=== PATIENT | female | born 1995 | race Caucasian/White ===

== ENCOUNTER 2017-03-22 09:55 | Emergency (ER) ==
[2017-03-22 10:01] VITALS: BP 149/88; TEMP 97.5; BMI 18.2
[2017-03-22] MEDS ORDERED: TORADOL IM STA (10:16)
[2017-03-22 10:33] LABS: BILIRUBIN,URINE Negative (NEGATIVE); KETONES,URINE Negative (NEGATIVE); LEUKOCYTE ESTERASE ,URINE Negative (NEGATIVE); NITRITE,URINE Negative (NEGATIVE); PH,URINE 8.5 (5-9); PROTEIN,URINE Negative (NEGATIVE); URINE, BLOOD Negative (NEGATIVE)
[2017-03-22 10:34] LABS: BASOPHILS % (AUTO) 0.3 % (0.0-3.0); EOSINOPHILS # (AUTO) 0.1 K/ul (0.0-0.7); EOSINOPHILS % (AUTO) 1.5 % (0.0-7.0); HEMATOCRIT 41.9 % (37.0-47.0); HEMOGLOBIN 14.7 g/dl (12.0-16.0); IMMATURE GRANULOCYTE % (AUTO) 0.4 % (0.0-5.0); LYMPHOCYTES # (AUTO) 1.9 K/uL (0.60-3.4); LYMPHOCYTES % (AUTO) 28.3 (10.0-50.0); MEAN CORPUSCULAR HEMOGLOBIN 30.4 pg (27.0-31.0); MEAN CORPUSCULAR HGB CONC 35.1 (31.8-35.4); MEAN CORPUSCULAR VOLUME 86.7 fl (81.0-99.0); MONOCYTES # (AUTO) 0.5 K/uL (0.4-2.0); MONOCYTES % (AUTO) 7.5 (0-10); NEUTROPHILS # (AUTO) 4.2 K/ul (2.0-6.9); PLATELET COUNT 221 10^3/uL (140-440); RED BLOOD COUNT 4.83 10^6/ul (4.20-5.40); WHITE BLOOD COUNT 6.76 K/ul (4.6-10.2)
[2017-03-22 10:35] LABS: ADD URINE MICROSCOPIC NO
[2017-03-22] MEDS ORDERED: STADOL IM STA (10:36)
[2017-03-22] MEDS ORDERED: ZOFRAN 4 MG/2 ML IM STA (10:37)
[2017-03-22 10:49] LABS: SERUM PREGNANCY INTERNAL QC INTERNAL QC VALID
[2017-03-22 10:51] LABS: ALBUMIN 4.4 g/dL (3.4-5.0); ALBUMIN/GLOBULIN RATIO 1.29; BILIRUBIN,TOTAL 0.55 mg/dL (0.00-1.20); BUN/CREATININE RATIO 9.21; CREATININE 0.76 mg/dL (0.60-1.30); TOTAL PROTEIN 7.8 g/dL (6.4-8.2)
--- NOTE | 2017-03-22 11:25 | CT ---
EXAM: CT Abdomen without contrast. CT Pelvis without contrast. HISTORY: Generalized abdominal pain. COMPARISON: None available. TECHNIQUE: Multiple axial images of the abdomen and pelvis were obtained without intravenous contras t. Images were reformatted in the coronal plane. FINDINGS: Please note that evaluation of the abdominal and pelvic structures is limited due to lack of intravenous contrast. The lung bases are clear. No acute osseous abnormality identified. The liver, gallbladder, pancreas, spleen, adrenal glands, and kidneys demonstrate normal contour. No calcified renal stones or hydronephrosis detected.. The bowel is normal in course and caliber without evidence for obstruction or inflammatory process. The appendix is probably normal. Uterus demonstrates normal contour. Small amount of free pelvic fl uid noted which is within physiologic range. Urinary bladder is unremarkable. No free air identifie d. Probable subcutaneous injection site in the left gluteal region on axial image 45 IMPRESSION: No acute abnormality within the abdomen or pelvis.
--- NOTE | 2017-03-22 11:39 | ED.PDOC ---
General ED Provider: Dr. SHE ARTEAGA Chief Complaint: Abdominal Pain Stated Complaint: ABDOMINAL PAIN Time Seen by Physician: 10:00 (SEEN WITH STAFF ) Mode of Arrival: Walk-In Information Source: Patient Exam Limitations: No limitations Nursing and Triage Documentation Reviewed and Agree: Yes (PAIN LLQ ) GI Complaint Exam - Abdominal Pain Complaint/Exam Onset: Gradual Duration: 1 DAY Symptoms Are: Still present Timing: Constant Initial Severity: Moderate Current Severity: Moderate Location of Pain: LLQ Character: Reports: Aching Aggravating: Reports: None Alleviating: Reports: None Associated Signs and Symptoms: Reports: Cough. Denies: Diaphoresis, Fever, Chest pain, Dizziness, Back pain, Constipation, Blood in stool, Dysuria, Urinary frequency, Decreased urine output, Decreased appetite, Vaginal bleeding , Vaginal discharge, Nausea, Vomiting, Diarrhea, Sore throat, Decreased activity AAA Risk Factors: Reports: None Cardiac Risk Factors: Reports: None Ectopic Risk Factors: Reports: None Ovarian Torsion Risk Factors: Reports: None Surgical Obstruction Risk Factors: Reports: None Related Surgical History: Reports: None Patient Rh Status: Unknown Abdominal Findings: Present: None Review of Systems - Review Of Systems Constitutional: Reports: Malaise Eyes: Reports: No symptoms Ears, Nose, Mouth, Throat: Reports: No symptoms Respiratory: Reports: Cough Cardiac: Reports: No symptoms GI: Reports: No symptoms : Reports: No symptoms Musculoskeletal: Reports: No symptoms Skin: Reports: No symptoms Neurological: Reports: No symptoms Endocrine: Reports: No symptoms Hematologic/Lymphatic: Reports: No symptoms All Other Systems: Reviewed and Negative Past Medical History - Past Medical History Previously Healthy: Yes Endocrine: Reports: None Cardiovascular: Reports: None Respiratory: Reports: None Hematological: Reports: None Gastrointestinal: Reports: None Genitourinary: Reports: None Neuro/Psych: Reports: None Musculoskeletal: Reports: None Cancer: Reports: None Last Menstrual Period: 1 month ago - Surgical History General Surgical History: Reports: None - Family History Family History: Reports: None - Social History Smoking Status: Current every day smoker, Light tobacco smoker Hx Substance Use: No Alcohol Screening: None Physical Exam - Physical Exam Appearance: Well-appearing, No pain distress, Well-nourished Eyes: WOODY, EOMI, Conjunctiva clear ENT: Ears normal, Nose normal, Oropharynx normal Respiratory: Rhonchi Cardiovascular: RRR, Pulses normal, No rub, No murmur GI/: Soft, Nontender, No masses, Bowel sounds normal, No Organomegaly Musculoskeletal: Normal strength, ROM intact, No edema, No calf tenderness Skin: Warm, Dry, Normal color Neurological: Sensation intact, Motor intact, Reflexes intact, Cranial nerves intact, Alert, Oriented Psychiatric: Affect appropriate, Mood appropriate Critical Care Note - Critical Care Note Total Time (mins): 0 Course - Course Hematology/Chemistry: 03/22/17 10:25 03/22/17 10:25 Orders, Labs, Meds: Lab Review 03/22/17 03/22/17 03/22/17 10:18 10:25 10:25 WBC 6.76 RBC 4.83 Hgb 14.7 Hct 41.9 MCV 86.7 MCH 30.4 MCHC [address] 12.9 Plt Count 221 Immature Gran % (Auto) 0.4 Neut % (Auto) 62.0 Lymph % (Auto) 28.3 Todd % (Auto) 7.5 Eos % (Auto) 1.5 Baso % (Auto) 0.3 Immature Gran # (Auto) 0.0 Neut # 4.2 Lymph # 1.9 Todd # 0.5 Eos # 0.1 Baso # 0.0 Sodium 141 Potassium 4.0 Chloride 107 Carbon Dioxide 27 Anion Gap 11.0 BUN 7 Creatinine 0.76 Estimated GFR (MDRD) 96.00 BUN/Creatinine Ratio 9.21 Glucose 90 Calcium 10.0 Total Bilirubin 0.55 AST 26 ALT 23 Alkaline Phosphatase 61 Total Protein 7.8 Albumin 4.4 Globulin 3.4 Albumin/Globulin Ratio 1.29 Amylase 44 Lipase 21 Serum , Qual Urine Color Yellow Urine Clarity Clear Urine pH 8.5 Ur Specific [place] 1.015 Urine Protein Negative Urine Glucose (UA) Negative Urine Ketones Negative Urine Blood Negative Urine Nitrite Negative Urine Bilirubin Negative Urine Urobilinogen 0.2 Ur Leukocyte Esterase Negative 03/22/17 10:25 WBC RBC Hgb Hct MCV MCH MCHC RDW Coeff of Ct Plt Count Immature Gran % (Auto) Neut % (Auto) Lymph % (Auto) Todd % (Auto) Eos % (Auto) Baso % (Auto) Immature Gran # (Auto) Neut # Lymph # Todd # Eos # Baso # Sodium Potassium Chloride Carbon Dioxide Anion Gap BUN Creatinine Estimated GFR (MDRD) BUN/Creatinine Ratio Glucose Calcium Total Bilirubin AST ALT Alkaline Phosphatase Total Protein Albumin Globulin Albumin/Globulin Ratio Amylase Lipase Serum , Qual Negative Urine Color Urine Clarity Urine pH Ur Specific [place] Urine Protein Urine Glucose (UA) Urine Ketones Urine Blood Urine Nitrite Urine Bilirubin Urine Urobilinogen Ur Leukocyte Esterase Orders Category Date Time Status AMYLASE Stat LAB 03/22/17 10:25 Completed CBC W/ AUTO DIFF Stat LAB 03/22/17 10:25 Completed COMPREHENSIVE METABOLIC PANEL Stat LAB 03/22/17 10:25 Completed LIPASE Stat LAB 03/22/17 10:25 Completed SERUM Stat LAB 03/22/17 10:25 Completed URINALYSIS C & S IF INDICATED Stat LAB 03/22/17 10:18 Completed Ketorolac Tromethamine [Toradol] MEDS 03/22/17 10:16 Discontinued 30 mg IM ONCE STA CT ABDOMEN/PELVIS WO CONTRAST Stat RADS 03/22/17 10:15 Completed Medications Discontinued Medications Generic Name Dose Route Start Last Admin Trade Name Freq PRN Reason Stop Dose Admin Ketorolac Tromethamine 30 mg 03/22/17 10:16 03/22/17 10:28 Toradol IM 03/22/17 10:17 30 mg ONCE STA Administration Vital Signs: Temp Pulse Resp BP Pulse Ox 03/22/17 09:56 97.5 F L 84 16 149/88 H 99 Departure - Departure Time of Disposition: 11:40 Disposition: HOME SELF-CARE Discharge Problem: Abdominal pain Instructions: Acute Abdominal Pain (ED) Condition: Good Pt referred to PMD for follow-up: Yes Additional Instructions: Please call your Family Physician as soon as possible to schedule a follow-up appointment. Prescriptions: Hydrocodone/Acetaminophen [[place] 10-325 Tablet] 1 each PO Q8HR #7 tablet Allergies/Adverse Reactions: Allergies No Known Allergies Allergy (Verified 03/22/17 10:03) Home Medications: Ambulatory Orders Hydrocodone/Acetaminophen [[place] 10-325 Tablet] 1 each PO Q8HR #7 tablet
== END 2017-03-22 12:04 | disposition home or self-care (01) ==
LOC: ED 09:55
DX: R10.9 Unspecified abdominal pain (principal); R05 Cough; F17.210 Nicotine dependence, cigarettes, uncomplicated
CPT/HCPCS: 36415; 80053; 81001; 82150; 83690; 84703; 85025; 96372; 99283